=== PATIENT | male | born 1950 | race Caucasian/White ===

== ENCOUNTER → 2019-07-16 | Outpatient (CLI) | payer MEDICARE, OTHER ==
[~2019-07-16] MED LIST: GADOTERATE 10 MMOL/20 ML SYR ONE
== END | disposition home or self-care (01) ==
LOC: CFH 12:32
PROVIDERS: ATTEND Nurse Practitioner Family
DX: G52.9 Cranial nerve disorder, unspecified (principal); J34.89 Other specified disorders of nose and nasal sinuses
CPT/HCPCS: 70553; A9575

== ENCOUNTER 2019-10-10 13:50 | Outpatient (CLI) | payer MEDICARE, OTHER ==
[~2019-10-10 13:50] MED LIST changes: -GADOTERATE 10 MMOL/20 ML SYR ONE; +LIDOCAINE 1%, 10ML ONE
== END 2019-10-10 23:59 | disposition home or self-care (01) ==
LOC: RAD 13:50
PROVIDERS: ATTEND Specialist
DX: R22.0 Localized swelling, mass and lump, head (principal); C76.0 Malignant neoplasm of head, face and neck
CPT/HCPCS: 20206; 76942; 88173; 88305

== ENCOUNTER → 2019-11-07 | Outpatient (CLI) | payer MEDICARE, OTHER | END | disposition home or self-care (01) | LOC: PETCFH 07:27 | PROVIDERS: ATTEND Specialist | DX: C76.0 Malignant neoplasm of head, face and neck (principal); G50.1 Atypical facial pain; G51.0 Bell's palsy; R20.2 Paresthesia of skin; R22.0 Localized swelling, mass and lump, head | CPT/HCPCS: 78815; A9552 ==

== ENCOUNTER → 2020-04-23 | Outpatient (CLI) | payer MEDICARE, OTHER ==
[~2020-04-23] MED LIST changes: -LIDOCAINE 1%, 10ML ONE; +OMNIPAQUE 350 MG/ML, 100ML BOTTLE ONE
== END | disposition home or self-care (01) ==
LOC: RAD 14:07
PROVIDERS: ATTEND Nurse Practitioner Family
DX: R10.812 Left upper quadrant abdominal tenderness (principal)
CPT/HCPCS: 74177; Q9967